=== PATIENT | male | born 1960 | race Two or more races ===

== ENCOUNTER 2017-06-14 09:18 | Emergency (ER) | payer OTHER ==
[2017-06-14 10:03] LABS: Hematocrit 46 % (42-52); Hemoglobin 14.8 g/dl (14.0-18.0); Mean Corpuscular HGB Conc 32 g/dl (31-36); Mean Corpuscular Hemoglobin 27 pg (27-31); Mean Corpuscular Volume 82 fL (80-94); Mean Platelet Volume 8 um3 (7.4-10.4); Red Blood Count 5.57 10^6/ul (4.0-5.4); Red Cell Distribution Width 15 % (10.5-15); White Blood Count 11.3 10^3/ul (3.5-10.8)
[2017-06-14 10:20] LABS: Troponin I 0.01 ng/mL (<0.04)
[2017-06-14 10:21] LABS: Albumin 3.9 g/dL (3.2-5.2); Calcium 9.4 mg/dL (8.6-10.3); EGFR African American 99.8 (>60); EGFR Non-African American 77.6 (>60); Globulin 3.3 g/dL (2-4); Potassium 3.7 mmol/L (3.5-5.0); Total Bilirubin 0.7 mg/dL (0.2-1.0); Total Protein 7.2 g/dL (6.4-8.9)
--- NOTE | 2017-06-14 10:21 | RAD ---
INDICATION: Chest pain COMPARISON: May 01, 2015 TECHNIQUE: An AP portable view obtained at 1007 hours is submitted. FINDINGS: Bones/Soft Tissues: There are no acute bony findings. Cardiomediastinal: The cardiomediastinal silhouette is normal. Lungs: There are no infiltrates. Pleura: There are no pleural effusions. Other: None IMPRESSION: NO ACTIVE DISEASE.
[2017-06-14] MEDS ORDERED: Iohexol 350* (CONTRAST) 500 ML MDV IV ONE (10:57)
--- NOTE | 2017-06-14 11:55 | RAD ---
HISTORY: Pleuritic chest pain COMPARISONS: May 24, 2015 TECHNIQUE: Multiple contiguous axial CT scans of the chest were obtained after the administration of nonionic intravenous contrast, timed to the pulmonary arterial phase of contrast enhancement.. Coronal and sagittal multiplanar reformations are also submitted for review. FINDINGS: NECK AND THYROID: The lower neck and thyroid are unremarkable. CHEST WALL: There is no lower cervical, axillary, or supraclavicular lymphadenopathy by size criteria. HEART AND PERICARDIUM: The heart is unremarkable. AORTA AND PULMONARY VASCULATURE: There is no pulmonary arterial filling defect to suggest pulmonary embolism. There is no linear filling defect within the aorta to suggest aortic dissection. MEDIASTINUM: There is no mediastinal lymphadenopathy by size criteria. SHARI: There is no hilar lymphadenopathy by size criteria. AIRWAY AND ESOPHAGUS: The airway is unremarkable, without endobronchial filling defect. The esophagus is grossly normal. LUNG PARENCHYMA: There is minimal dependent atelectasis of the lung bases bilaterally PLEURA: No pleural abnormalities are noted. UPPER ABDOMEN: The upper abdomen is unremarkable. BONES AND SOFT TISSUES: Degenerative changes are noted there is a stable compression deformity of T12. OTHER: None. IMPRESSION: NO PULMONARY ARTERIAL FILLING DEFECT TO SUGGEST PULMONARY EMBOLISM.
[2017-06-14] MEDS ORDERED: Sucralfate TAB* 1 GM PO ONE (12:01)
[2017-06-14 13:17] VITALS: BP 114/76
--- NOTE | 2017-06-14 14:27 | ED ---
Yesy Rodriguez Gabriel scribed for Jayme Cordova MD on 06/14/17 at 0949 . HPI Chest Pain - HPI Summary HPI Summary: This patient is a 57 year old M BIBA to [facility] accompanied by family with a chief complaint of CP that began 2 days prior but worsened last night. Pt describes the pain as being in the middle of his chest and constant. The patient rates the pain 3/10 in severity. Symptoms aggravated by bending over and movement. Symptoms alleviated by lying down. Patient reports SOB and discomfort on deep inspiration. Patient denies nausea and diaphoresis. Everything was dictated and translated by his daughter because he does not speak Macedonian. - History of Current Complaint Chief Complaint: EDChestPainROMI Time Seen by Provider: 06/14/17 09:29 Hx Obtained From: Family/[facility] - Daughter translated because the pt does not speak yakut Onset/Duration: Started Days Ago - Tuesday night, Still Present Timing: Constant Current Severity: Mild Pain Intensity: 3 Pain Scale Used: 0-10 Numeric Aggravating Factor(s): Exertion, Deep Breaths, Other: - bending at hip Alleviating Factor(s): Position - lying - Allergy/Home Medications Allergies/Adverse Reactions: Allergies Allergy/AdvReac Type Severity Reaction Status Date / Time No Known Allergies Allergy Verified 05/24/15 11:36 Home Medications: Home Medications Etanercept [Enbrel] 25 mg SUBCUT .TWICEWEEKLY 06/14/17 [History Confirmed ] Folic Acid TAB* [Folvite TAB*] 2 mg PO DAILY 06/14/17 [History Confirmed ] Methotrexate TAB* 2.5 mg PO DAILY 06/14/17 [History Confirmed 06/14/17] predniSONE TAB* [Deltasone TAB*] 5 mg PO DAILY 06/14/17 [History Confirmed 06/14] PMH/Surg Hx/FS Hx/Imm Hx Previously Healthy: No Endocrine/Hematology History: Denies: Hx Diabetes Cardiovascular History: Denies: Hx Congestive Heart Failure, Hx Hypertension History: Reports: Hx Kidney Stones - RIGHT, Hx Renal Disease - calculi Musculoskeletal History: Reports: Hx Arthritis - 7 HX OF RA, Hx Rheumatoid Arthritis Sensory History: Denies: Hx Contacts or Glasses, Hx Hearing Aid Opthamlomology History: Denies: Hx Contacts or Glasses - Surgical History Surgery Procedure, Year, and Place: ureteral stent 09/03/13. hx kidney stones Hx Anesthesia Reactions: No - Immunization History Date of Tetanus Vaccine: UTD Date of Influenza Vaccine: NONE Infectious Disease History: No Infectious Disease History: Denies: Traveled Outside the [place] in Last 30 Days - Family History Known Family History: Positive: Cardiac Disease - His father had HTN and of an [place] Negative: Hypertension, Diabetes - Social History Alcohol Use: None Substance Use Type: Reports: None Smoking Status (MU): Never Smoked Tobacco Type: Cigarettes Amount Used/How Often: 1/2 PPD Length of Time of Smoking/Using Tobacco: 25 YRS Have You Smoked in the Last Year: No Review of Systems Negative: Skin Diaphoresis Positive: Shortness Of Breath, Other - discomfort on deep inspiration Negative: Nausea All Other Systems Reviewed And Are Negative: Yes Physical Exam - Summary Physical Exam Summary: Appearance: Well-appearing Eyes: Normal, Conjunctiva clear ENT: Normal ENT inspection. Dental: Normal Neck: Supple, non-tender, no lymphadenopathy Lungs: Lungs clear, normal breath sounds, no respiratory distress, no accessory muscle use. Heart: Mildly tachycardia with regular rhythm , no murmur, pulses normal. Abdomen: Nontender, soft. Musculoskeletal: Normal Neurological: Normal Psychiatric: Normal Skin: Normal Triage Information Reviewed: Yes Vital Signs On Initial Exam: Initial Vitals Temp Pulse Resp BP Pulse Ox 98.2 F 104 23 120/70 97 06/14/17 09:22 06/14/17 09:22 06/14/17 09:22 06/14/17 09:22 06/14/17 09:22 Vital Signs Reviewed: Yes - [place] Coma Scale Coma Scale Total: 15 Diagnostics - Vital Signs Vital Signs Temp Pulse Resp BP Pulse Ox 06/14/17 09:30 112/69 06/14/17 09:27 109 28 97 06/14/17 09:25 120/70 06/14/17 09:22 98.2 F 104 23 120/70 97 - Laboratory Lab Results: Lab Results 06/14/17 06/14/17 06/14/17 Range/Units 09:35 09:35 09:35 WBC 11.3 H (3.5-10.8) 10^3/ul RBC 5.57 H (4.0-5.4) 10^6/ul Hgb 14.8 (14.0-18.0) g/dl Hct 46 (42-52) % MCV 82 (80-94) fL MCH 27 (27-31) pg MCHC 32 (31-36) g/dl RDW 15 (10.5-15) % Plt Count 251 (150-450) 10^3/ul MPV 8 (7.4-10.4) um3 Neut % (Auto) 77.2 (38-83) % Lymph % (Auto) 11.1 L (25-47) % Cand[place] % (Auto) 11.4 H (1-9) % Eos % (Auto) 0.1 (0-6) % Baso % (Auto) 0.2 (0-2) % Absolute Neuts (auto) 8.7 H (1.5-7.7) 10^3/ul Absolute Lymphs (auto) 1.3 (1.0-4.8) 10^3/ul Absolute Monos (auto) 1.3 H (0-0.8) 10^3/ul Absolute Eos (auto) 0 (0-0.6) 10^3/ul Absolute Basos (auto) 0 (0-0.2) 10^3/ul Absolute Nucleated RBC 0.01 10^3/ul Nucleated RBC % 0.1 INR (Anticoag Therapy) (0.89-1.11) D-Dimer, Quantitative (Less Than 230) ng/mL Sodium 134 (133-145) mmol/L Potassium 3.7 (3.5-5.0) mmol/L Chloride 103 (101-111) mmol/L Carbon Dioxide 24 (22-32) mmol/L Anion Gap 7 (2-11) mmol/L BUN 11 (6-24) mg/dL Creatinine 1.00 (0.67-1.17) mg/dL Est GFR ( Amer) 99.8 (>60) Est GFR (Non-Af Amer) 77.6 (>60) BUN/Creatinine Ratio 11.0 (8-20) Glucose 133 H (70-100) mg/dL Lactic Acid 1.6 (0.5-2.0) mmol/L Calcium 9.4 (8.6-10.3) mg/dL Total Bilirubin 0.70 (0.2-1.0) mg/dL AST 18 (13-39) U/L ALT 23 (7-52) U/L Alkaline Phosphatase 62 (34-104) U/L Troponin I 0.01 (<0.04) ng/mL Total Protein 7.2 (6.4-8.9) g/dL Albumin 3.9 (3.2-5.2) g/dL Globulin 3.3 (2-4) g/dL Albumin/Globulin Ratio 1.2 (1-3) 06/14/17 06/14/17 Range/Units 09:35 12:50 WBC (3.5-10.8) 10^3/ul RBC (4.0-5.4) 10^6/ul Hgb (14.0-18.0) g/dl Hct (42-52) % MCV (80-94) fL MCH (27-31) pg MCHC (31-36) g/dl RDW (10.5-15) % Plt Count (150-450) 10^3/ul MPV (7.4-10.4) um3 Neut % (Auto) (38-83) % Lymph % (Auto) (25-47) % Candler % (Auto) (1-9) % Eos % (Auto) (0-6) % Baso % (Auto) (0-2) % Absolute Neuts (auto) (1.5-7.7) 10^3/ul Absolute Lymphs (auto) (1.0-4.8) 10^3/ul Absolute Monos (auto) (0-0.8) 10^3/ul Absolute Eos (auto) (0-0.6) 10^3/ul Absolute Basos (auto) (0-0.2) 10^3/ul Absolute Nucleated RBC 10^3/ul Nucleated RBC % INR (Anticoag Therapy) 1.24 H (0.89-1.11) D-Dimer, Quantitative 456 H (Less Than 230) ng/mL Sodium (133-145) mmol/L Potassium (3.5-5.0) mmol/L Chloride (101-111) mmol/L Carbon Dioxide (22-32) mmol/L Anion Gap (2-11) mmol/L BUN (6-24) mg/dL Creatinine (0.67-1.17) mg/dL Est GFR ( Amer) (>60) Est GFR (Non-Af Amer) (>60) BUN/Creatinine Ratio (8-20) Glucose (70-100) mg/dL Lactic Acid (0.5-2.0) mmol/L Calcium (8.6-10.3) mg/dL Total Bilirubin (0.2-1.0) mg/dL AST (13-39) U/L ALT (7-52) U/L Alkaline Phosphatase (34-104) U/L Troponin I 0.01 (<0.04) ng/mL Total Protein (6.4-8.9) g/dL Albumin (3.2-5.2) g/dL Globulin (2-4) g/dL Albumin/Globulin Ratio (1-3) Result Diagrams: 06/14/17 09:35 06/14/17 09:35 Lab Statement: Any lab studies that have been ordered have been reviewed, and results considered in the medical decision making process. - Radiology CXR Radiology Interpretation Completed By: Radiologist - No active disease. ED physician has reviewed this radiology report and agrees - EKG 9:26 Cardiac Rate: Tachycardia EKG Rhythm: Sinus Rhythm - 103 BPM EKG Interpretation: acute non-specific ST wave changes consistent with 05/24 Chest Pain Course/Dx - Course Course Of Treatment: Mr. Pugh presented with chest pain for 2 days which worsened last night. He could reproduce it by bending forward. I could not reproduce it. His abdomen was soft and nontender. He did say that when he bent forward, it hurt more with breaths. GI medication did not help. His W/U including a delayed troponin (his EDACS score was 8) was remarkable only for a mildly increased d-dimer. CTA was negative. I think this is a musculoskeletal pain and recommended D/C and close F/U. - Diagnoses Provider Diagnoses: Chest pain Discharge - Discharge Plan Condition: Stable Disposition: HOME Patient Education Materials: Chest Pain (ED) Referrals: Lucy Scott MD [Primary Care Provider] - Additional Instructions: Follow up with Dr. Nance in 3-4 days. RETURN TO THE EMERGENCY DEPARTMENT FOR CHANGING OR WORSENING SYMPTOMS. The documentation as recorded by the Yesy crowe Gabriel accurately reflects the service I personally performed and the decisions made by me, Jayme Cordova MD.
== END 2017-06-14 14:07 | disposition home or self-care (01) ==
LOC: ED 09:18
DX: R06.02 Shortness of breath (principal); R07.9 Chest pain, unspecified
CPT/HCPCS: 36415; 71010; 71275; 80053; 83605; 84484; 85025; 85379; 85610; 93005; 99282; A9270-GY; Q9967